=== PATIENT | female | born 1930 | race Caucasian/White ===

== ENCOUNTER 2018-04-09 13:14 | Inpatient (IN) | payer MEDICARE, OTHER ==
[~2018-04-09] VITALS: Ht 157.5 cm; Wt 66.9 kg
[~2018-04-09 13:14] MED LIST: FURO20 PO; LEVO50 PO; LUBI8CAP PO; METO25 PO; MYCO250C7 PO; PANT40TA25 PO; PRED50 PO; TACR1CAP PO; VALS160T2 PO
[2018-04-09 13:54] LABS: GLUCOSE,POINT OF CARE 527 MG/DL (70-110)
[2018-04-09] MEDS ORDERED: SODIUM CHLORIDE 0.9% 500 ML IV ONE (14:30)
[2018-04-09] MEDS ORDERED: INSULIN REGULAR, HUMAN 100 UNITS/ML IVP ONE ×3 (14:30→19:15)
[2018-04-09] MEDS ORDERED: CefTRIAXone 1 GM/DEXTROSE 50 ML IV ONE (14:30)
[2018-04-09 14:49] LABS: BASOPHILS % (AUTO) 0.2 % (0.0-2.0); EOSINOPHILS % (AUTO) 0 % (1.0-6.0); HEMATOCRIT 41.5 % (36-46); HEMOGLOBIN 13.5 g/dL (12.0-16.0); LYMPHOCYTES % (AUTO) 4.4 % (22.0-44.0); MEAN CORPUSCULAR HEMOGLOBIN 29.4 pg (26.0-34.0); MEAN CORPUSCULAR HGB CONC 32.5 G/dL (31.0-37.0); MEAN CORPUSCULAR VOLUME 91 fL (80-100); MONOCYTES # (AUTO) 1.2 K/uL (0.1-1.0); MONOCYTES % (AUTO) 5.7 % (2.0-9.0); NEUTROPHILS # (AUTO) 19.3 K/uL (1.8-7.7); NEUTROPHILS % (AUTO) 89.7 % (40.0-70.0); PLATELET COUNT (AUTO) 440 K/uL (150-450); RED BLOOD CELL COUNT(AUTO) 4.59 MIL/uL (4.00-5.20); RED CELL DISTRIBUTION WIDTH 14.2 % (11.5-14.5)
[2018-04-09 15:15] LABS: ALANINE AMINOTRANSFERASE 11 U/L (12-78); ALBUMIN 2.2 g/dL (3.4-5.0); ALKALINE PHOSPHATASE 82 U/L (46-116); ANION GAP 12 mmol/L (8-16); ASPARTATE AMINOTRANSFERASE 9 U/L (15-37); BILIRUBIN,TOTAL 0.3 mg/dL (0.1-1.0); CALCIUM, TOTAL 9.6 mg/dL (8.8-10.5); CARBON DIOXIDE 26 mmol/L (22-29); CHLORIDE 97 mmol/L (98-107); GLOMERULAR FILTR. RATE CALC 27 mL/min (>60); LIPASE 66 U/L (73-393); POTASSIUM 4.6 mmol/L (3.5-5.1); SODIUM SERUM 135 mmol/L (136-145); TOTAL PROTEIN, SERUM 8.6 g/dL (6.4-8.2); UREA NITROGEN, BLOOD 48 mg/dL (7-18)
[2018-04-09 15:19] LABS: GLUCOSE,RANDOM 564 mg/dL (70-110)
[2018-04-09] MEDS ORDERED: INSULIN REGULAR, HUMAN 100 UNITS in SODIUM CHLORIDE 0.9% 99 ML IV PRN ×2 (15:27)
[2018-04-09] MEDS ORDERED: DEXTROSE 50%-WATER 25 GM/50 ML SYRINGE IVP PRN ×2 (15:30→18:30)
[2018-04-09 15:32] LABS: LACTIC ACID 3.3 mmol/L (0.4-2.0)
[2018-04-09 15:51] LABS: PLATELET MORPHOLOGY COMMENT GIANT PLTS PRESENT
[2018-04-09] MEDS ORDERED: SODIUM CHLORIDE 0.9% 1,000 ML IV ONE ×4 (16:00→21:00)
[2018-04-09 16:59] LABS: GLUCOSE,POINT OF CARE 447 MG/DL (70-110)
[2018-04-09] MEDS ORDERED: ACETAMINOPHEN 325 MG TABLET PO PRN (17:45)
[2018-04-09] MEDS ORDERED: MAGNESIUM HYDROXIDE SUSPENSION 30 ML UDCUP PO PRN (17:45)
[2018-04-09] MEDS ORDERED: ONDANSETRON HCL 4 MG/2 ML VIAL IVP PRN (17:45)
[2018-04-09] MEDS ORDERED: ALBUTEROL SULFATE 2.5 MG/0.5 ML NEB SOLUTION NEB PRN (17:45)
[2018-04-09] MEDS ORDERED: BISACODYL 10 MG RECTAL RECTAL SUPPOSITORY PR PRN (17:45)
[2018-04-09] MEDS ORDERED: IPRATROPIUM BROMIDE 0.5 MG/2.5 ML NEB SOLUTION NEB PRN (17:45)
[2018-04-09] MEDS ORDERED: VANCOMYCIN HCL 1 GM/D5% WATER 200 ML IV SCH (17:45)
[2018-04-09] MEDS ORDERED: LEVOFLOXACIN 500 MG/D5% WATER 100 ML IV SCH (18:00)
[2018-04-09] MEDS ORDERED: 0.9% SODIUM CHLORIDE 10 ML SYRINGE IVP ONE ×2 (18:00→18:45)
[2018-04-09] MEDS ORDERED: SODIUM CHLORIDE 0.9% 250 ML IV ONE (18:00)
[2018-04-09 18:03] LABS: GLUCOSE,POINT OF CARE 431 MG/DL (70-110)
[2018-04-09] MEDS: HEPARIN SODIUM,PORCINE 5,000 UNITS/ML VIAL SQ SCH (18:24)
[2018-04-09] MEDS ORDERED: VANCOMYCIN HCL 500 MG in DEXTROSE 5%-WATER 100 ML IV ONE (19:00)
[2018-04-09 19:38] LABS: GLUCOSE,POINT OF CARE 349 MG/DL (70-110)
[2018-04-09 20:08] LABS: GLUCOSE,POINT OF CARE 298 MG/DL (70-110)
[2018-04-09] MEDS ORDERED: INSULIN GLARGINE,HUM.REC.ANLOG 100 UNITS/ML SQ SCH (21:00)
[2018-04-09 21:13] LABS: GLUCOSE,POINT OF CARE 159 MG/DL (70-110)
[2018-04-09 23:28] LABS: GLUCOSE,POINT OF CARE 115 MG/DL (70-110)
[2018-04-10] VITALS (11 sets, daily range): BP systolic 69–170; BP diastolic 44–87
[2018-04-10] MEDS: HYPROMELLOSE 0.5% 15 ML OPHTHALMIC SOLUTION OU SCH ×4 (00:44→18:12)
[2018-04-10] MEDS: MetroNIDAZOLE 500 MG/NACL 100 ML IV SCH ×2 (00:44→08:16)
[2018-04-10] MEDS: CEFEPIME HCL 2 GM in DEXTROSE 5%-WATER 50 ML IV SCH (01:05)
[2018-04-10 02:18] LABS: GLUCOSE,POINT OF CARE 153 MG/DL (70-110)
[2018-04-10 05:09] LABS: BASOPHILS % (AUTO) 0.1 % (0.0-2.0); EOSINOPHILS % (AUTO) 0 % (1.0-6.0); HEMOGLOBIN 11.3 g/dL (12.0-16.0); LYMPHOCYTES # (AUTO) 1.7 K/uL (1.0-4.8); LYMPHOCYTES % (AUTO) 7.6 % (22.0-44.0); MEAN CORPUSCULAR HEMOGLOBIN 29.4 pg (26.0-34.0); MEAN CORPUSCULAR HGB CONC 33.2 G/dL (31.0-37.0); MEAN CORPUSCULAR VOLUME 89 fL (80-100); MONOCYTES # (AUTO) 1.3 K/uL (0.1-1.0); MONOCYTES % (AUTO) 5.9 % (2.0-9.0); NEUTROPHILS # (AUTO) 19.2 K/uL (1.8-7.7); PLATELET COUNT (AUTO) 381 K/uL (150-450); RED BLOOD CELL COUNT(AUTO) 3.83 MIL/uL (4.00-5.20); RED CELL DISTRIBUTION WIDTH 13.8 % (11.5-14.5)
[2018-04-10 05:15] LABS: NEUTROPHILS % (AUTO) 86.4 % (40.0-70.0)
[2018-04-10 05:21] LABS: HEMOGLOBIN A1C 9.5 % (4.5-6.2)
[2018-04-10 05:27] LABS: LACTIC ACID 0.9 mmol/L (0.4-2.0)
[2018-04-10 05:38] LABS: CALCIUM, TOTAL 7.8 mg/dL (8.8-10.5); CHOL/HDL RATIO 1.9 (3.9-5.7); CREATININE 1.52 mg/dL (0.60-1.30); FREE T4 (FREE THYROXINE) 1.03 ng/dL (0.76-1.46); POTASSIUM 3.7 mmol/L (3.5-5.1); THYROID STIMULATING HORMONE 0.61 uIU/mL (0.36-3.74)
[2018-04-10 05:51] LABS: URIC ACID 5.6 mg/dL (2.6-7.2)
[2018-04-10 06:03] LABS: PLATELET MORPHOLOGY COMMENT GIANT PLTS PRESENT
[2018-04-10] MEDS: LEVOTHYROXINE SODIUM 50 MCG TABLET PO SCH (06:20)
[2018-04-10] MEDS: HEPARIN SODIUM,PORCINE 5,000 UNITS/ML VIAL SQ SCH ×2 (06:24→18:11)
[2018-04-10] MEDS: INSULIN LISPRO 100 UNITS/ML SQ PRN ×4 (06:25→21:45)
[2018-04-10] MEDS ORDERED: MAGNESIUM SULFATE 3 GM in DEXTROSE 5%-WATER 100 ML IV ONE (07:00)
[2018-04-10 07:43] LABS: APPEARANCE,URINE TURBID (CLEAR); BILIRUBIN,URINE NEGATIVE (NEGATIVE); GLUCOSE, URINE (UA) NEGATIVE (NEGATIVE); KETONES,URINE TRACE mg/dL (NEGATIVE); LEUKOCYTE ESTERASE ,URINE LARGE (NEGATIVE); NITRATE,URINE NEGATIVE (NEGATIVE); OCCULT BLOOD,URINE LARGE (NEGATIVE); PROTEIN,URINE SEE CONFIRM (NEGATIVE); UROBILINOGEN,URINE 0.2 mg/dL (<=1.0)
[2018-04-10 08:02] LABS: BACTERIA,URINE Many /HPF (None Seen); RBC,URINE 51-100 /HPF (0-2); SULFOSALICYLIC ACID,URINE 3+ (Negative); WBC,URINE Full Field /HPF (0-5)
[2018-04-10] MEDS: VANCOMYCIN HCL 500 MG in DEXTROSE 5%-WATER 100 ML IV SCH (08:15)
[2018-04-10] MEDS ORDERED: DIGOXIN 250 MCG/ML 2 ML AMP IVP ONE (08:15)
[2018-04-10] MEDS ORDERED: AMIODARONE HCL 150 MG in DEXTROSE 5%-WATER 97 ML IV ONE (08:30)
[2018-04-10] MEDS ORDERED: AMIODARONE HCL 360 MG in DEXTROSE 5%-WATER 242.8 ML IV ONE (08:40)
[2018-04-10] MEDS ORDERED: MYCOPHENOLATE MOFETIL 250 MG CAPSULE PO SCH (09:00)
[2018-04-10] MEDS ORDERED: TACROLIMUS ANHYDROUS 1 MG CAPSULE PO SCH (09:00)
[2018-04-10] MEDS: PANTOPRAZOLE SODIUM 40 MG/VIAL IVP SCH (09:18)
[2018-04-10] MEDS: PredniSONE 10 MG TABLET PO SCH (09:57)
[2018-04-10] MEDS ORDERED: AmLODIPine BESYLATE 5 MG TABLET PO SCH (10:15)
[2018-04-10 11:03] LABS: GLUCOSE,POINT OF CARE 255 MG/DL (70-110)
[2018-04-10] MEDS ORDERED: AMIODARONE HCL 540 MG in DEXTROSE 5%-WATER 239.2 ML IV ONE (14:40)
[2018-04-10 20:24] LABS: GLUCOMETER DEV NAME(LOC) 5S 2R; GLUCOSE,POINT OF CARE 298 MG/DL (70-110)
[2018-04-10] MEDS: TACROLIMUS ANHYDROUS 1 MG CAPSULE PO SCH (21:38)
[2018-04-10] MEDS: INSULIN GLARGINE,HUM.REC.ANLOG 100 UNITS/ML SQ SCH (21:46)
[2018-04-11] MEDS: HYPROMELLOSE 0.5% 15 ML OPHTHALMIC SOLUTION OU SCH ×5 (00:12→23:38)
[2018-04-11] MEDS ORDERED: SODIUM CHLORIDE 0.9% 250 ML IV ONE (01:54)
[2018-04-11] MEDS: CEFEPIME HCL 2 GM in DEXTROSE 5%-WATER 50 ML IV SCH (02:05)
[2018-04-11 03:34] VITALS: BP 144/61
[2018-04-11 05:29] LABS: GLUCOMETER DEV NAME(LOC) 5N 2S; GLUCOSE,POINT OF CARE 324 MG/DL (70-110)
[2018-04-11] MEDS: HEPARIN SODIUM,PORCINE 5,000 UNITS/ML VIAL SQ SCH ×2 (05:32→18:28)
[2018-04-11] MEDS: LEVOTHYROXINE SODIUM 50 MCG TABLET PO SCH (05:33)
[2018-04-11] MEDS: INSULIN LISPRO 100 UNITS/ML SQ PRN ×4 (05:39→21:09)
[2018-04-11 07:42] VITALS: BP 159/70
[2018-04-11] MEDS: PredniSONE 10 MG TABLET PO SCH (08:35)
[2018-04-11] MEDS: PANTOPRAZOLE SODIUM 40 MG/VIAL IVP SCH (08:35)
[2018-04-11] MEDS: TACROLIMUS ANHYDROUS 1 MG CAPSULE PO SCH ×2 (08:35→21:04)
[2018-04-11] MEDS: AMIODARONE HCL 750 MG in DEXTROSE 5%-WATER 485 ML IV SCH (08:35)
[2018-04-11 08:53] LABS: BASOPHILS % (AUTO) 0.2 % (0.0-2.0); EOSINOPHILS % (AUTO) 0.5 % (1.0-6.0); HEMATOCRIT 34.3 % (36-46); HEMOGLOBIN 11.6 g/dL (12.0-16.0); LYMPHOCYTES # (AUTO) 1.7 K/uL (1.0-4.8); LYMPHOCYTES % (AUTO) 9.9 % (22.0-44.0); MEAN CORPUSCULAR HEMOGLOBIN 30.1 pg (26.0-34.0); MEAN CORPUSCULAR VOLUME 89 fL (80-100); MONOCYTES # (AUTO) 1.2 K/uL (0.1-1.0); NEUTROPHILS # (AUTO) 13.9 K/uL (1.8-7.7); NEUTROPHILS % (AUTO) 82.4 % (40.0-70.0); PLATELET COUNT (AUTO) 384 K/uL (150-450); RED BLOOD CELL COUNT(AUTO) 3.87 MIL/uL (4.00-5.20)
[2018-04-11 09:08] LABS: CALCIUM, TOTAL 8.2 mg/dL (8.8-10.5); CREATININE 1.39 mg/dL (0.60-1.30); MAGNESIUM 1.8 mg/dL (1.80-2.40); POTASSIUM 3.6 mmol/L (3.5-5.1)
[2018-04-11] MEDS: VANCOMYCIN HCL 500 MG in DEXTROSE 5%-WATER 100 ML IV SCH (10:07)
[2018-04-11 11:12] VITALS: BP 157/67
[2018-04-11 12:19] LABS: PHOSPHORUS 2.2 mg/dL (2.5-4.9)
[2018-04-11 14:09] LABS: GLUCOSE,POINT OF CARE 310 MG/DL (70-110)
[2018-04-11 15:41] VITALS: BP 158/75
[2018-04-11] MEDS: LEVOFLOXACIN 500 MG/D5% WATER 100 ML IV SCH (18:29)
[2018-04-11 18:49] LABS: GLUCOMETER DEV NAME(LOC) 5N 1P; GLUCOSE,POINT OF CARE 206 MG/DL (70-110)
[2018-04-11 18:49] LABS: GLUCOMETER DEV NAME(LOC) 5N 1P; GLUCOSE,POINT OF CARE 313 MG/DL (70-110)
[2018-04-11 18:50] LABS: GLUCOMETER DEV NAME(LOC) 5N 1P; GLUCOSE,POINT OF CARE 204 MG/DL (70-110)
[2018-04-11 19:10] VITALS: BP 158/75
[2018-04-11] MEDS: INSULIN GLARGINE,HUM.REC.ANLOG 100 UNITS/ML SQ SCH (21:00)
[2018-04-11 23:30] VITALS: BP 145/61
[2018-04-12] MEDS: CEFEPIME HCL 2 GM in DEXTROSE 5%-WATER 50 ML IV SCH (01:36)
[2018-04-12 04:10] VITALS: BP 147/80
[2018-04-12 04:39] LABS: GLUCOMETER DEV NAME(LOC) 5S 1N; GLUCOSE,POINT OF CARE 198 MG/DL (70-110)
[2018-04-12] MEDS: HEPARIN SODIUM,PORCINE 5,000 UNITS/ML VIAL SQ SCH ×2 (05:46→17:30)
[2018-04-12] MEDS: HYPROMELLOSE 0.5% 15 ML OPHTHALMIC SOLUTION OU SCH ×3 (05:46→17:30)
[2018-04-12] MEDS: INSULIN LISPRO 100 UNITS/ML SQ PRN ×4 (05:49→20:19)
[2018-04-12 06:34] LABS: BASOPHILS % (AUTO) 0.2 % (0.0-2.0); EOSINOPHILS % (AUTO) 0.5 % (1.0-6.0); HEMOGLOBIN 12.2 g/dL (12.0-16.0); LYMPHOCYTES # (AUTO) 1.8 K/uL (1.0-4.8); LYMPHOCYTES % (AUTO) 11.2 % (22.0-44.0); MEAN CORPUSCULAR HEMOGLOBIN 29.6 pg (26.0-34.0); MEAN CORPUSCULAR VOLUME 87 fL (80-100); MONOCYTES % (AUTO) 6.5 % (2.0-9.0); NEUTROPHILS # (AUTO) 12.9 K/uL (1.8-7.7); NEUTROPHILS % (AUTO) 81.6 % (40.0-70.0); PLATELET COUNT (AUTO) 372 K/uL (150-450); RED BLOOD CELL COUNT(AUTO) 4.13 MIL/uL (4.00-5.20); RED CELL DISTRIBUTION WIDTH 13.9 % (11.5-14.5)
[2018-04-12] MEDS: LEVOTHYROXINE SODIUM 50 MCG TABLET PO SCH (06:38)
[2018-04-12 07:06] LABS: CALCIUM, TOTAL 8.3 mg/dL (8.8-10.5); CREATININE 1.27 mg/dL (0.60-1.30); POTASSIUM 3.8 mmol/L (3.5-5.1); VANCOMYCIN,RANDOM 11.4 mcg/mL (25.0-50.0)
[2018-04-12 07:32] VITALS: BP 141/62
[2018-04-12] MEDS ORDERED: VANCOMYCIN HCL 1 GM/D5% WATER 200 ML IV SCH (08:00)
[2018-04-12] MEDS: PANTOPRAZOLE SODIUM 40 MG/VIAL IVP SCH (08:29)
[2018-04-12] MEDS: TACROLIMUS ANHYDROUS 1 MG CAPSULE PO SCH ×2 (08:30→20:18)
[2018-04-12] MEDS: PredniSONE 10 MG TABLET PO SCH (08:30)
[2018-04-12] MEDS: MULTIVITAMINS, THERAPEUTIC TABLET PO SCH (08:30)
[2018-04-12] MEDS: AMIODARONE HCL 750 MG in DEXTROSE 5%-WATER 485 ML IV SCH (08:31)
[2018-04-12] MEDS: METOPROLOL TARTRATE 25 MG TABLET PO SCH ×2 (08:33→20:18)
[2018-04-12 09:11] LABS: ORGANISM ID Not indicated.; S PNEUMO SOURCE Urine; STREP PNEUMONIAE AG URINE Negative (Negative); STREP.PNEUMO BODY FLUID CULT. Not Indicated
[2018-04-12 11:20] VITALS: BP 157/77
[2018-04-12] MEDS: INSULIN GLARGINE,HUM.REC.ANLOG 100 UNITS/ML SQ SCH (12:20)
[2018-04-12 13:19] LABS: GLUCOMETER DEV NAME(LOC) 5N 1P; GLUCOSE,POINT OF CARE 182 MG/DL (70-110)
[2018-04-12 13:38] LABS: GLUCOMETER DEV NAME(LOC) 5S 1N; GLUCOSE,POINT OF CARE 322 MG/DL (70-110)
[2018-04-12 16:17] VITALS: BP 143/72
[2018-04-12 19:27] VITALS: BP 114/75
[2018-04-12 21:58] LABS: GLUCOMETER DEV NAME(LOC) 5N 1P; GLUCOSE,POINT OF CARE 354 MG/DL (70-110)
[2018-04-12 21:59] LABS: GLUCOMETER DEV NAME(LOC) 5S 1N; GLUCOSE,POINT OF CARE 358 MG/DL (70-110)
[2018-04-12 23:51] VITALS: BP 146/72
[2018-04-13] MEDS: HYPROMELLOSE 0.5% 15 ML OPHTHALMIC SOLUTION OU SCH ×4 (00:18→16:58)
[2018-04-13 03:40] VITALS: BP 157/67
[2018-04-13] MEDS: HEPARIN SODIUM,PORCINE 5,000 UNITS/ML VIAL SQ SCH ×2 (05:49→16:57)
[2018-04-13] MEDS: LEVOTHYROXINE SODIUM 50 MCG TABLET PO SCH (05:49)
[2018-04-13] MEDS: INSULIN LISPRO 100 UNITS/ML SQ PRN ×4 (05:53→20:23)
[2018-04-13 05:56] LABS: BASOPHILS % (AUTO) 0.1 % (0.0-2.0); EOSINOPHILS % (AUTO) 0.9 % (1.0-6.0); HEMATOCRIT 35.2 % (36-46); LYMPHOCYTES # (AUTO) 2.5 K/uL (1.0-4.8); LYMPHOCYTES % (AUTO) 16.8 % (22.0-44.0); MEAN CORPUSCULAR HEMOGLOBIN 29.7 pg (26.0-34.0); MEAN CORPUSCULAR VOLUME 87 fL (80-100); MONOCYTES # (AUTO) 1.3 K/uL (0.1-1.0); NEUTROPHILS # (AUTO) 10.9 K/uL (1.8-7.7); NEUTROPHILS % (AUTO) 73.2 % (40.0-70.0); PLATELET COUNT (AUTO) 367 K/uL (150-450); RED BLOOD CELL COUNT(AUTO) 4.03 MIL/uL (4.00-5.20); RED CELL DISTRIBUTION WIDTH 13.9 % (11.5-14.5)
[2018-04-13 06:13] LABS: ALBUMIN 1.7 g/dL (3.4-5.0); BILIRUBIN,TOTAL 0.3 mg/dL (0.1-1.0); CALCIUM, TOTAL 7.8 mg/dL (8.8-10.5); CREATININE 1.24 mg/dL (0.60-1.30); MAGNESIUM 1.4 mg/dL (1.80-2.40); POTASSIUM 4.1 mmol/L (3.5-5.1); TOTAL PROTEIN, SERUM 6.7 g/dL (6.4-8.2)
[2018-04-13 07:25] VITALS: BP 129/55
[2018-04-13] MEDS: METOPROLOL TARTRATE 25 MG TABLET PO SCH ×2 (08:44→20:21)
[2018-04-13] MEDS: TACROLIMUS ANHYDROUS 1 MG CAPSULE PO SCH ×2 (08:44→20:22)
[2018-04-13] MEDS: MULTIVITAMINS, THERAPEUTIC TABLET PO SCH (08:44)
[2018-04-13] MEDS: PANTOPRAZOLE SODIUM 40 MG/VIAL IVP SCH (08:44)
[2018-04-13] MEDS: PredniSONE 10 MG TABLET PO SCH (08:44)
[2018-04-13] MEDS: INSULIN GLARGINE,HUM.REC.ANLOG 100 UNITS/ML SQ SCH (08:49)
[2018-04-13] MEDS ORDERED: MAGNESIUM SULFATE 4 GM/WATER 100 ML IV PRN (09:30)
[2018-04-13 09:49] LABS: GLUCOMETER DEV NAME(LOC) 5N 1P; GLUCOSE,POINT OF CARE 144 MG/DL (70-110)
[2018-04-13] MEDS: MAGNESIUM SULFATE 2 GM/WATER 50 ML IV PRN (11:08)
[2018-04-13 11:33] VITALS: BP 155/72
[2018-04-13 15:09] VITALS: BP 140/77
[2018-04-13] MEDS: CEFEPIME HCL 2 GM in DEXTROSE 5%-WATER 50 ML IV SCH (16:23)
[2018-04-13] MEDS: LEVOFLOXACIN 500 MG/D5% WATER 100 ML IV SCH (16:57)
[2018-04-13 19:47] VITALS: BP 151/68
[2018-04-14 00:07] VITALS: BP 148/71
[2018-04-14] MEDS: HYPROMELLOSE 0.5% 15 ML OPHTHALMIC SOLUTION OU SCH ×4 (00:16→18:10)
[2018-04-14] MEDS: CEFEPIME HCL 2 GM in DEXTROSE 5%-WATER 50 ML IV SCH ×2 (03:03→15:26)
[2018-04-14 05:06] VITALS: BP 152/72
[2018-04-14] MEDS: LEVOTHYROXINE SODIUM 50 MCG TABLET PO SCH (05:41)
[2018-04-14] MEDS: HEPARIN SODIUM,PORCINE 5,000 UNITS/ML VIAL SQ SCH ×2 (05:41→16:58)
[2018-04-14] MEDS: INSULIN LISPRO 100 UNITS/ML SQ PRN ×4 (05:42→22:57)
[2018-04-14 06:48] LABS: BASOPHILS % (AUTO) 0.2 % (0.0-2.0); EOSINOPHILS % (AUTO) 0.7 % (1.0-6.0); HEMATOCRIT 34.8 % (36-46); HEMOGLOBIN 11.7 g/dL (12.0-16.0); LYMPHOCYTES # (AUTO) 2.4 K/uL (1.0-4.8); LYMPHOCYTES % (AUTO) 17.4 % (22.0-44.0); MEAN CORPUSCULAR HEMOGLOBIN 29.6 pg (26.0-34.0); MEAN CORPUSCULAR HGB CONC 33.6 G/dL (31.0-37.0); MEAN CORPUSCULAR VOLUME 88 fL (80-100); MONOCYTES # (AUTO) 1.1 K/uL (0.1-1.0); MONOCYTES % (AUTO) 8.1 % (2.0-9.0); NEUTROPHILS # (AUTO) 10.2 K/uL (1.8-7.7); NEUTROPHILS % (AUTO) 73.6 % (40.0-70.0); PLATELET COUNT (AUTO) 372 K/uL (150-450); RED BLOOD CELL COUNT(AUTO) 3.95 MIL/uL (4.00-5.20); RED CELL DISTRIBUTION WIDTH 14.2 % (11.5-14.5)
[2018-04-14 06:56] LABS: ALBUMIN 1.6 g/dL (3.4-5.0); BILIRUBIN,TOTAL 0.2 mg/dL (0.1-1.0); CALCIUM, TOTAL 8.2 mg/dL (8.8-10.5); CREATININE 1.3 mg/dL (0.60-1.30); MAGNESIUM 1.9 mg/dL (1.80-2.40); POTASSIUM 4.5 mmol/L (3.5-5.1); TOTAL PROTEIN, SERUM 6.8 g/dL (6.4-8.2)
[2018-04-14 07:45] VITALS: BP 143/63
[2018-04-14] MEDS: PANTOPRAZOLE SODIUM 40 MG/VIAL IVP SCH (08:21)
[2018-04-14] MEDS: PredniSONE 10 MG TABLET PO SCH (08:22)
[2018-04-14] MEDS: METOPROLOL TARTRATE 25 MG TABLET PO SCH ×2 (08:22→21:12)
[2018-04-14] MEDS: TACROLIMUS ANHYDROUS 1 MG CAPSULE PO SCH ×2 (08:23→21:12)
[2018-04-14] MEDS: MULTIVITAMINS, THERAPEUTIC TABLET PO SCH (08:23)
[2018-04-14] MEDS: INSULIN GLARGINE,HUM.REC.ANLOG 100 UNITS/ML SQ SCH (08:34)
[2018-04-14 09:44] LABS: GLUCOMETER DEV NAME(LOC) 5N 1P; GLUCOSE,POINT OF CARE 247 MG/DL (70-110)
[2018-04-14 11:12] VITALS: BP 124/48
[2018-04-14 15:54] VITALS: BP 134/59
[2018-04-14 20:29] VITALS: BP 143/58
[2018-04-14] MEDS: MetroNIDAZOLE 500 MG TABLET PO SCH (21:12)
[2018-04-15] VITALS (8 sets, daily range): BP systolic 128–151; BP diastolic 56–95
[2018-04-15] MEDS: HYPROMELLOSE 0.5% 15 ML OPHTHALMIC SOLUTION OU SCH ×4 (00:08→18:06)
[2018-04-15] MEDS: CEFEPIME HCL 2 GM in DEXTROSE 5%-WATER 50 ML IV SCH ×2 (03:05→15:48)
[2018-04-15] MEDS: HEPARIN SODIUM,PORCINE 5,000 UNITS/ML VIAL SQ SCH ×2 (05:33→18:06)
[2018-04-15] MEDS: LEVOTHYROXINE SODIUM 50 MCG TABLET PO SCH (05:33)
[2018-04-15 06:40] LABS: BASOPHILS % (AUTO) 0.4 % (0.0-2.0); EOSINOPHILS % (AUTO) 0.8 % (1.0-6.0); HEMOGLOBIN 11.7 g/dL (12.0-16.0); LYMPHOCYTES # (AUTO) 2.4 K/uL (1.0-4.8); LYMPHOCYTES % (AUTO) 16.3 % (22.0-44.0); MEAN CORPUSCULAR HEMOGLOBIN 29.9 pg (26.0-34.0); MEAN CORPUSCULAR HGB CONC 34.2 G/dL (31.0-37.0); MEAN CORPUSCULAR VOLUME 88 fL (80-100); MONOCYTES % (AUTO) 7.1 % (2.0-9.0); NEUTROPHILS # (AUTO) 11.1 K/uL (1.8-7.7); NEUTROPHILS % (AUTO) 75.4 % (40.0-70.0); PLATELET COUNT (AUTO) 368 K/uL (150-450); RED BLOOD CELL COUNT(AUTO) 3.89 MIL/uL (4.00-5.20); RED CELL DISTRIBUTION WIDTH 13.9 % (11.5-14.5)
[2018-04-15 06:44] LABS: GLUCOMETER DEV NAME(LOC) 5N.2; GLUCOSE,POINT OF CARE 197 MG/DL (70-110)
[2018-04-15] MEDS: INSULIN LISPRO 100 UNITS/ML SQ PRN ×4 (06:49→21:29)
[2018-04-15 07:09] LABS: CALCIUM, TOTAL 7.9 mg/dL (8.8-10.5); CREATININE 1.25 mg/dL (0.60-1.30); MAGNESIUM 1.6 mg/dL (1.80-2.40); PHOSPHORUS 2.1 mg/dL (2.5-4.9); POTASSIUM 4.3 mmol/L (3.5-5.1)
[2018-04-15] MEDS: INSULIN GLARGINE,HUM.REC.ANLOG 100 UNITS/ML SQ SCH (09:00)
[2018-04-15] MEDS: METOPROLOL TARTRATE 25 MG TABLET PO SCH ×2 (09:30→21:18)
[2018-04-15] MEDS: MetroNIDAZOLE 500 MG TABLET PO SCH (09:30)
[2018-04-15] MEDS: PANTOPRAZOLE SODIUM 40 MG/VIAL IVP SCH (09:30)
[2018-04-15] MEDS: MULTIVITAMINS, THERAPEUTIC TABLET PO SCH (09:30)
[2018-04-15] MEDS: TACROLIMUS ANHYDROUS 1 MG CAPSULE PO SCH ×2 (09:32→21:19)
[2018-04-15] MEDS: PredniSONE 10 MG TABLET PO SCH (09:32)
[2018-04-15] MEDS: MAGNESIUM OXIDE 400 MG TABLET PO PRN ×3 (09:58→21:18)
[2018-04-15 13:54] LABS: GLUCOMETER DEV NAME(LOC) 5S 1N; GLUCOSE,POINT OF CARE 382 MG/DL (70-110)
[2018-04-15 13:54] LABS: GLUCOMETER DEV NAME(LOC) 5S 1N; GLUCOSE,POINT OF CARE 279 MG/DL (70-110)
[2018-04-15 13:54] LABS: GLUCOMETER DEV NAME(LOC) 5S 1N; GLUCOSE,POINT OF CARE 238 MG/DL (70-110)
[2018-04-15 13:54] LABS: GLUCOMETER DEV NAME(LOC) 5S 1N; GLUCOSE,POINT OF CARE 232 MG/DL (70-110)
[2018-04-15 13:55] LABS: GLUCOMETER DEV NAME(LOC) 5S 1N; GLUCOSE,POINT OF CARE 233 MG/DL (70-110)
[2018-04-15 13:55] LABS: GLUCOMETER DEV NAME(LOC) 5S 1N; GLUCOSE,POINT OF CARE 304 MG/DL (70-110)
[2018-04-15 13:55] LABS: GLUCOMETER DEV NAME(LOC) 5S 1N; GLUCOSE,POINT OF CARE 238 MG/DL (70-110)
[2018-04-15] MEDS: LEVOFLOXACIN 500 MG/D5% WATER 100 ML IV SCH (18:06)
[2018-04-15] MEDS ORDERED: LEVOFLOXACIN 250 MG TABLET PO ONE (18:30)
[2018-04-15 19:10] LABS: GLUCOMETER DEV NAME(LOC) 5N.2; GLUCOSE,POINT OF CARE 323 MG/DL (70-110)
[2018-04-15 19:11] LABS: GLUCOMETER DEV NAME(LOC) 5N.2; GLUCOSE,POINT OF CARE 293 MG/DL (70-110)
[2018-04-15] MEDS ORDERED: SODIUM PHOS,M-BASIC-D-BASIC 20 MMOL in DEXTROSE 5%-WATER 150 ML IV ONE (20:00)
[2018-04-15 22:38] LABS: GLUCOMETER DEV NAME(LOC) 5N.2; GLUCOSE,POINT OF CARE 292 MG/DL (70-110)
[2018-04-16] MEDS: HYPROMELLOSE 0.5% 15 ML OPHTHALMIC SOLUTION OU SCH ×3 (01:02→13:25)
[2018-04-16 04:25] VITALS: BP 149/61
[2018-04-16] MEDS: LEVOTHYROXINE SODIUM 50 MCG TABLET PO SCH (05:52)
[2018-04-16] MEDS: INSULIN LISPRO 100 UNITS/ML SQ PRN ×2 (06:21→12:24)
[2018-04-16 06:45] LABS: GLUCOMETER DEV NAME(LOC) 5S.1; GLUCOSE,POINT OF CARE 157 MG/DL (70-110)
[2018-04-16 06:54] LABS: BASOPHILS % (AUTO) 0.7 % (0.0-2.0); EOSINOPHILS % (AUTO) 0.9 % (1.0-6.0); HEMATOCRIT 33.6 % (36-46); HEMOGLOBIN 11.4 g/dL (12.0-16.0); LYMPHOCYTES # (AUTO) 2.6 K/uL (1.0-4.8); LYMPHOCYTES % (AUTO) 16.2 % (22.0-44.0); MEAN CORPUSCULAR HEMOGLOBIN 29.8 pg (26.0-34.0); MEAN CORPUSCULAR VOLUME 88 fL (80-100); MONOCYTES # (AUTO) 1.2 K/uL (0.1-1.0); MONOCYTES % (AUTO) 7.7 % (2.0-9.0); NEUTROPHILS # (AUTO) 11.9 K/uL (1.8-7.7); NEUTROPHILS % (AUTO) 74.5 % (40.0-70.0); PLATELET COUNT (AUTO) 341 K/uL (150-450); RED BLOOD CELL COUNT(AUTO) 3.83 MIL/uL (4.00-5.20); RED CELL DISTRIBUTION WIDTH 14.2 % (11.5-14.5)
[2018-04-16 07:22] LABS: CALCIUM, TOTAL 8.2 mg/dL (8.8-10.5); CREATININE 1.11 mg/dL (0.60-1.30); MAGNESIUM 1.4 mg/dL (1.80-2.40); PHOSPHORUS 3.6 mg/dL (2.5-4.9); POTASSIUM 4.2 mmol/L (3.5-5.1)
[2018-04-16 07:32] VITALS: BP 132/57
[2018-04-16] MEDS: PANTOPRAZOLE SODIUM 40 MG/VIAL IVP SCH (08:33)
[2018-04-16] MEDS: PredniSONE 10 MG TABLET PO SCH (08:33)
[2018-04-16] MEDS: TACROLIMUS ANHYDROUS 1 MG CAPSULE PO SCH (08:33)
[2018-04-16] MEDS: MULTIVITAMINS, THERAPEUTIC TABLET PO SCH (08:33)
[2018-04-16] MEDS: METOPROLOL TARTRATE 25 MG TABLET PO SCH (08:34)
[2018-04-16] MEDS: MAGNESIUM SULFATE 2 GM/WATER 50 ML IV PRN (08:36)
[2018-04-16] MEDS ORDERED: HEPARIN SODIUM,PORCINE 5,000 UNITS/ML VIAL SQ SCH (09:00)
[2018-04-16] MEDS: INSULIN GLARGINE,HUM.REC.ANLOG 100 UNITS/ML SQ SCH (09:37)
[2018-04-16 11:40] VITALS: BP 146/67
[2018-04-16 12:40] LABS: GLUCOMETER DEV NAME(LOC) 5N.2; GLUCOSE,POINT OF CARE 171 MG/DL (70-110)
[2018-04-16] MEDS ORDERED: MAGNESIUM SULFATE 2 GM/WATER 50 ML IV ONE ×2 (13:30)
[2018-04-16 15:26] VITALS: BP 139/73
[2018-04-16] MEDS ORDERED: INSLAN SQ (15:34)
[2018-04-16] MEDS ORDERED: LEVO750T46 PO (15:36)
[2018-04-16] MEDS ORDERED: HYPR15DR23 OU (15:36)
[2018-04-16] MEDS ORDERED: MULT-723 PO (15:38)
[2018-04-16] MEDS ORDERED: MAGOX PO (15:39)
[2018-04-16] MEDS ORDERED: TACR1CAP2 PO (15:41)
[2018-04-16] MEDS ORDERED: ACET-784 PO (15:42)
[2018-04-16] MEDS ORDERED: AUD NEB (15:44)
[2018-04-16] MEDS ORDERED: BISA5TAB12 PR (15:47)
[2018-04-16] MEDS ORDERED: IPRNEB IH (16:01)
[2018-04-16] MEDS ORDERED: MAGN800O PO (16:04)
[2018-04-17] MEDS ORDERED: INSULIN GLARGINE,HUM.REC.ANLOG 100 UNITS/ML SQ SCH (09:00)
[2018-04-17] MEDS ORDERED: LEVOFLOXACIN 250 MG TABLET PO SCH (09:00)
[2018-04-17 12:09] LABS: GLUCOMETER DEV NAME(LOC) 5N.2; GLUCOSE,POINT OF CARE 161 MG/DL (70-110)
== END 2018-04-16 18:20 | DRG 871 ==
LOC: EMS 13:14 → ICU 18:11 → 5N 04-10 16:30
PROVIDERS: ADMIT Internal Medicine Geriatric Medicine; ATTEND Internal Medicine Geriatric Medicine
DX: A41.9 Sepsis, unspecified organism (principal); J18.9 Pneumonia, unspecified organism; N18.6 End stage renal disease; T86.19 Other complication of kidney transplant; I47.1 Supraventricular tachycardia; G93.40 Encephalopathy, unspecified; N39.0 Urinary tract infection, site not specified; I13.2 Hypertensive heart and chronic kidney disease with heart failure and with stage 5 chronic kidney disease, or end stage renal disease; N12 Tubulo-interstitial nephritis, not specified as acute or chronic; Z94.0 Kidney transplant status; B96.1 Klebsiella pneumoniae [K. pneumoniae] as the cause of diseases classified elsewhere; D64.9 Anemia, unspecified; T38.0X5A Adverse effect of glucocorticoids and synthetic analogues, initial encounter; I50.9 Heart failure, unspecified; E11.21 Type 2 diabetes mellitus with diabetic nephropathy; E83.42 Hypomagnesemia; R31.29 Other microscopic hematuria; R26.9 Unspecified abnormalities of gait and mobility; Y83.8 Other surgical procedures as the cause of abnormal reaction of the patient, or of later complication, without mention of misadventure at the time of the procedure; E03.9 Hypothyroidism, unspecified; E11.22 Type 2 diabetes mellitus with diabetic chronic kidney disease; F03.90 Unspecified dementia, unspecified severity, without behavioral disturbance, psychotic disturbance, mood disturbance, and anxiety; Z88.0 Allergy status to penicillin; E11.65 Type 2 diabetes mellitus with hyperglycemia; K21.9 Gastro-esophageal reflux disease without esophagitis; E78.5 Hyperlipidemia, unspecified; Z87.440 Personal history of urinary (tract) infections; Z79.899 Other long term (current) drug therapy; Y92.89 Other specified places as the place of occurrence of the external cause
CPT/HCPCS: 36245; 51702; 70450; 71250; 72192; 74150; 76770; 76937; 80197; 83036; 83605; 83735; 84100; 84145; 84439; 84443; 84550; 86738; 87040; 87081; 87086; 87205; 87449; 87899; 92610; 93005; 93306; 97162; 97530; 99291; C9113; G0378; J0282; J0692; J0696; J1160; J1644; J1815; J1956; J2405; J3370; J3475; J3490; J7030; J7050; J7060; J7507; J7517